=== PATIENT | female | born 1995 | race Hispanic/Latino ===

== ENCOUNTER 2023-08-16 12:06 | Emergency (ER) | payer SELFPAY ==
--- NOTE | ~2023-08-16 | US_ITS ---
EXAMINATION: US OB <=14 wk fetus w TV INDICATION: miscarriage TECHNIQUE: Sonography of the pelvis was performed by transabdominal and transvaginal techniques. COMPARISON: None. RESULT: Uterus: 8.8 x 4.9 x 6.2 cm. Anteverted. Homogenous myometrium. Endometrial thickened to 2.5 cm by pa rtially vascular heterogeneously echogenic material. Intrauterine gestational sac: Not seen. Right ovary: 2.0 x 1.2 x 1.9 cm. Vascular flow is present. No adnexal mass. Left ovary: 2.3 x 2.8 x 3.3 cm. Vascular flow is present. 1.9 cm simple cyst. Pelvis free fluid: None. IMPRESSION: A discrete gestational sac is not identified. No sonographic evidence of ectopic . Endometrial thickening, with endometrial cavity contents that likely represent a combination of hemor rhage and products of conception, consistent with loss, in progress. Reviewed, dictated and finalized at location [facility]. IMPRESSION: A discrete gestational sac is not identified. No sonographic evidence of ectopic . Endometrial thickening, with endometrial cavity contents that likely represent a combination of hemorrhage and products of conception, consistent with pregnan cy loss, in progress.
[2023-08-16 12:12] VITALS: BP 116/71; PULSE 82; RESP 18; TEMP 36.6; O2SAT 99
--- NOTE | 2023-08-16 14:24 | ED.FEMALEGU ---
HPI - Female Genitourinary General Chief complaint: Vaginal Bleeding Stated complaint: ABD pain/ spotting Time Seen by Provider: 08/16/23 14:24 Focused HPI:Zoe is a 28-year-old female patient presenting to the emergency room today with complaints of abdominal pain and vaginal spotting. She reports that she has taken at home test and was positive, but has not seen OB. Last menstrual period was in June 27. Reports she is having pain to the left hip and over her uterus. Symptoms started this morning and are gradually getting worse. Denies any urinary symptoms. Pain is 8/10 currently. General: Well-developed, well nourished, in no apparent distress. Head: Normocephalic, atraumatic. Cardio: Regular rate and rhythm, s1 and s2 normal, no murmur appreciated. Resp: Clear to auscultation bilaterally, no rhonchi, rales, wheezing or rubs. Abdomen: Soft, pliable, bowel sounds present in all quadrants, tender to palpation over the lower abdomen and suprapubic area, no organomegly, no CVAT tenderness. Patient screened in triage and initial orders placed. Additional care and disposition to be based upon diagnostic testing and treatment. Source: patient Mode of arrival: ambulatory Limitations: no limitations Related Data Allergies Allergy/AdvReac Type Severity Reaction Status Date / Time No Known Allergies Allergy Verified 08/16/23 12:08 PMFSH Comments At the time of my signature, I reviewed and agree with the nursing past medical, surgical, social, and family history. There is no relevant family history pertinent to the patient complaint. Course Course Emergency Course: Portions of this record may have been created with voice recognition software. Vital Signs Vital signs: Vital Signs Temperature 36.6 C 08/16/23 12:12 Pulse Rate 82 08/16/23 12:12 Respiratory Rate 18 08/16/23 12:12 Blood Pressure 116/71 08/16/23 12:12 Pulse Oximetry 99 08/16/23 12:12 Temperature 36.6 C 08/16/23 12:12 Pulse Rate 71 08/16/23 14:51 Respiratory Rate 14 08/16/23 14:51 Blood Pressure 113/73 08/16/23 14:51 Pulse Oximetry 100 08/16/23 14:51 Vital signs reviewed MDM - Female Genitourinary Lab Data 08/16/23 14:46 08/16/23 14:46 Labs: Lab Results 08/16/23 Range/Units 14:46 WBC 11.0 H (4.5-10.0) K/mm3 RBC 4.21 (4.2-5.4) M/mm3 Hgb 12.6 (12.0-15.0) g/dL Hct 38.1 (37.0-47.0) % MCV 90.5 (80-100) fl MCH 29.9 (26-34) pg MCHC 33.1 (32-36) g/dl RDW 13.3 (11.5-14.5) % Plt Count 351 (150-375) k/mm3 MPV 10.0 (7.4-10.4) fl Immature Gran % (Auto) 0.4 (0-0.5) % Neut % (Auto) 49.8 (45.5-73.1) % Lymph % (Auto) 42.1 (18.3-44.2) % Sawyer % (Auto) 6.3 (2.6-8.5) % Eos % (Auto) 1.0 (0-4.4) % Baso % (Auto) 0.4 (0.2-1.2) % Lymph # (Auto) 4.63 H (0.9-3.2) K/mm3 Sawyer # (Auto) 0.7 H (0.1-0.6) K/mm3 Eos # (Auto) 0.1 (0-0.3) K/mm3 Baso # (Auto) 0.0 (0.0-0.1) K/mm3 Abs Immat Gran (auto) 0.04 H (0.00-0.031) K/mm3 Absolute Neuts (auto) 5.5 (1.3-6.7) K/mm3 Absolute Nucleated RBC 0.000 (0.0-0.012) K/mm3 Nucleated RBC % 0.0 (0.0-0.2) % PT 12.9 (11.1-14.7) Seconds INR 0.9 APTT 27.2 (22.3-36.8) Seconds Sodium 137 (137-145) mmol/L Potassium 4.3 (3.4-5.0) mmol/L Chloride 105 (98-107) mmol/L Carbon Dioxide 24 (22-30) mmol/L Anion Gap 8 (4-12) mmol/L BUN 7 (7-17) mg/dL Creatinine 0.50 L (0.7-1.0) mg/dL Estim Creat Clear Calc Not Reportable Estimated GFR > 60 (59 - ) Glucose 96 (65-110) mg/dL Calcium 9.0 (8.4-10.2) mg/dL Total Bilirubin 0.3 (0.2-1.3) mg/dL AST 23 (14-36) U/L ALT 30 (6-35) U/L Alkaline Phosphatase 44 (38-126) U/L Total Protein 8.0 (6.3-8.2) g/dL Albumin 4.6 (3.5-5.1) g/dL Beta HCG, Quant 51095.00 mIU/ML Urine Color Yellow (Yellow) Urine Appearance Clear (Clear) Urine pH 6.5 (5.0-9.0) Ur Specific [place] 1.009 (1.001-1.035)
[2023-08-16 14:51] VITALS: BP 113/73; PULSE 71; RESP 14; O2SAT 100
[2023-08-16 14:57] LABS: Basophils Percent Auto 0.4 % (0.2-1.2); Eosinophils Absolute Auto 0.1 K/mm3 (0-0.3); Hematocrit 38.1 % (37.0-47.0); Hemoglobin 12.6 g/dL (12.0-15.0); Immature Granulocyte Absolute 0.04 K/mm3 (0.00-0.031); Immature Granulocyte Percent A 0.4 % (0-0.5); Lymphocytes Absolute Auto 4.63 K/mm3 (0.9-3.2); Lymphocytes Percent Auto 42.1 % (18.3-44.2); Mean Corpuscular HGB Conc 33.1 g/dl (32-36); Mean Corpuscular Hemoglobin 29.9 pg (26-34); Mean Corpuscular Volume 90.5 fl (80-100); Monocytes Absolute Auto 0.7 K/mm3 (0.1-0.6); Monocytes Percent Auto 6.3 % (2.6-8.5); Neutrophils Absolute Auto 5.5 K/mm3 (1.3-6.7); Neutrophils Percent Auto 49.8 % (45.5-73.1); Platelet Count Result 351 k/mm3 (150-375); Red Blood Count 4.21 M/mm3 (4.2-5.4); Red Cell Distribution Width 13.3 % (11.5-14.5)
[2023-08-16 15:00] LABS: Appearance Urine Clear (Clear); Bacteria Urine None Seen /hpf; Bilirubin Urine Negative (Negative); Blood Urine Trace (Negative); Color Urine Yellow (Yellow); Glucose Urine UA Negative (Negative); Ketones Urine Negative (Negative); Leukocyte Esterase Ur Negative LEU/UL (Negative); Nitrate Urine Negative (Negative); Non Pathogenic Casts 0-2; Protein Urine Negative (Negative); RBC Urine 0-2 /hpf (0-2); Specific Grav Ur 1.009 (1.001-1.035); Squamous Epithelial Cell Urine None Seen /hpf (Few); Urobilinogen Urine 0.2 mg/dL (<2.0); WBC Urine 0-5 /hpf (0-3); pH Urine 6.5 (5.0-9.0)
[2023-08-16 15:03] LABS: Add Urine Microscopic? YES
[2023-08-16 15:04] LABS: Alanine Aminotransferase 30 U/L (6-35); Albumin Level 4.6 g/dL (3.5-5.1); Alkaline Phosphatase 44 U/L (38-126); Anion Gap 8 mmol/L (4-12); Aspartate Amino Transferase 23 U/L (14-36); Bilirubin,Total 0.3 mg/dL (0.2-1.3); Blood Urea Nitrogen 7 mg/dL (7-17); Carbon Dioxide 24 mmol/L (22-30); Chloride 105 mmol/L (98-107); Estimated Glomerular Filt Rate > 60; Glucose 96 mg/dL (65-110); INR 0.9; Partial Thromboplastin Time 27.2 Seconds (22.3-36.8); Potassium 4.3 mmol/L (3.4-5.0); Prothrombin Time 12.9 Seconds (11.1-14.7); Sodium 137 mmol/L (137-145)
--- NOTE | 2023-08-16 15:31 | ED.FEMALEGU ---
HPI - Female Genitourinary General Chief complaint: Vaginal Bleeding Stated complaint: ABD pain/ spotting Time Seen by Provider: 08/16/23 14:24 Source: patient Mode of arrival: ambulatory Limitations: no limitations History of Present Illness HPI Narrative: PATIENT CAME TO THE EMERGENCY ROOM BY PRIVATE CAR, 28 YEARS OLD FEMALE DOES NOT SPEAK JAPANESE COMPLAINING OF LOWER ABDOMINAL PAIN AND VAGINAL SPOTTING FOR THE LAST 15 DAYS ROXANNA SAINI PATIENT IS 4 PARA 2 HOURS. PATIENT HAD POSITIVE TEST AT HOME, LAST MENSTRUAL PERIOD WAS JUNE 27 2023. CURRENTLY PATIENT DOES NOT HAVE AN OBGYN FOR FOLLOW-UP. SHE DENIES ANY FEVER, CHILLS, NAUSEA, VOMITING, LIGHTHEADEDNESS OR DIZZINESS. Related Data Allergies Allergy/AdvReac Type Severity Reaction Status Date / Time No Known Allergies Allergy Verified 08/16/23 12:08 Review of Systems Review of Systems: All systems reviewed & are unremarkable except as noted in HPI and below Exam Narrative: GENERAL APPEARANCE: WELL-DEVELOPED, WELL-NOURISHED SKIN: NORMAL COLOR CHEST AND RESPIRATORY: AIRWAY PATENT, NO RESPIRATORY DISTRESS, NO ACCESSORY MUSCLE USE HEART: REGULAR RATE/RHYTHM ABDOMEN: SOFT, MILD SUPRAPUBIC TENDERNESS, NO GUARDING REBOUND, NO ORGANOMEGALY, QUIET BOWEL SOUNDS MUSCULOSKELETAL: NORMAL RANGE OF MOTION, NONTENDER BACK NEUROLOGIC: ALERT AND ORIENTED ?3, HARBOR TUG CAPTAIN IS NORMAL TESTED, NO GROSS MOTOR DEFICIT Course Consultations Consultation #1: LYLE ALEJO PATIENT NEED TO COME BACK TO HIS OFFICE TOMORROW FOR D AND C Date: 08/16/23 Time: 17:53 Vital Signs Vital signs: Vital Signs Temperature 36.6 C 08/16/23 12:12 Pulse Rate 82 08/16/23 12:12 Respiratory Rate 18 08/16/23 12:12 Blood Pressure 116/71 08/16/23 12:12 Pulse Oximetry 99 08/16/23 12:12 Temperature 36.6 C 08/16/23 12:12 Pulse Rate 71 08/16/23 14:51 Respiratory Rate 14 08/16/23 14:51 Blood Pressure 113/73 08/16/23 14:51 Pulse Oximetry 100 08/16/23 14:51 MDM - Female Genitourinary MDM Narrative Medical decision making narrative: PATIENT PRESENTS WITH VAGINAL SPOTTING FOR THE LAST 15 DAYS, UNKNOWN DURATION OF . LAST MENSTRUAL PERIOD JUNE 27, 2023 PATIENT DECLINED PELVIC EXAMINATION. DIFFERENTIAL DIAGNOSIS THREATENED , COMPLETE, INCOMPLETE , ECTOPIC BLOOD WORKUP AND URINALYSIS TODAY SHOWED NO SIGNIFICANT ABNORMALITIES. PELVIC ULTRASOUND SHOWED FINDING CONSISTENT WITH INCOMPLETE , AND NO EVIDENCE OF ECTOPIC , POSITIVE PRODUCTS OF CONCEPTION CONSISTENT WITH LOSS, IN PROGRESS PATIENT IS SCHEDULED FOR D&C TOMORROW DISCUSSED WITH DR. LYLE HALLMAN LATER DR. BASSETT CANCELED THE APPOINTMENT BECAUSE HE DOES NOT TAKE HER INSURANCE. I WAS ABLE TO SPEAK TO DR. SMITH AT THE OBG[facility] WHO DOES NOT TAKE THE PATIENT'S INSURANCE, RECOMMENDED THE PATIENT CAN FOLLOW-UP WITH [facility]. Differential Diagnosis Differential diagnosis: Likely other ( ABOVE) Lab Data 08/16/23 14:46 08/16/23 14:46 Labs: Lab Results 08/16/23 Range/Units 14:46 WBC 11.0 H (4.5-10.0) K/mm3 RBC 4.21 (4.2-5.4) M/mm3 Hgb 12.6 (12.0-15.0) g/dL Hct 38.1 (37.0-47.0) % MCV 90.5 (80-100) fl MCH 29.9 (26-34) pg MCHC 33.1 (32-36) g/dl RDW 13.3 (11.5-14.5) % Plt Count 351 (150-375) k/mm3 MPV 10.0 (7.4-10.4) fl Immature Gran % (Auto) 0.4 (0-0.5) % Neut % (Auto) 49.8 (45.5-73.1) % Lymph % (Auto) 42.1 (18.3-44.2) % Owen % (Auto) 6.3 (2.6-8.5) % Eos % (Auto) 1.0 (0-4.4) % Baso % (Auto) 0.4 (0.2-1.2) % Lymph # (Auto) 4.63 H (0
[2023-08-16] MEDS: SODIUM CHLORIDE 0.9% IV 1,000 ML 999 ML IV CONT (16:50)
== END 2023-08-16 19:14 | disposition home or self-care (01) ==
PROVIDERS: Nurse Practitioner Family; Emergency Provider Emergency Medicine
DX: O03.4 Incomplete spontaneous abortion without complication (principal)
CPT/HCPCS: 36415; 76801; 76817; 80053; 81001; 81025; 84702; 85025; 85461; 85610; 85730; 86850; 86900; 86901; 96360; 99284; J7030

== ENCOUNTER 2024-03-22 13:17 | Emergency (ER) | payer OTHER, SELFPAY ==
--- NOTE | ~2024-03-22 | US_ITS ---
EXAMINATION: US OB <= 14 weeks fetus DATE: 03/22/2024 16:34 INDICATION: . Pelvic pain. TECHNIQUE: Real-time transabdominal pelvic ultrasound was performed. COMPARISON: Ultrasound 08/16/2023 FINDINGS: The uterus measures 9.7 x 9.3 x 10.3 cm. There is an intrauterine gestational sac with mean diameter of 6.2 cm. The crown rump length measures 8.1 cm. The femur length is 1.4 cm. These findings co rrelate with an estimated gestational age of 14 weeks and 1 day(s) (+/-) 1 week(s) and 0 day(s). Feta l heart motion is identified measuring 150 beats per minute (bpm) by M-mode Doppler. The right ovary measures 1.7 x 2.6 x 2.2 cm. The left ovary measures 2.1 x 1.7 x 1.7 cm. There is no free fluid in th e pelvis. IMPRESSION: 1. Single living intrauterine gestation with estimated date of delivery of 09/19/2024. Reviewed, dictated and finalized at location A. L POURER IMPRESSION: 1. Single living intrauterine gestation with estimated date of delivery of 09/07.
[2024-03-22 13:18] VITALS: BP 107/63; PULSE 65; RESP 18; TEMP 36.5; O2SAT 100
--- NOTE | 2024-03-22 13:42 | ED_ITS ---
HPI - General Chief complaint: Vaginal Bleeding <Precious Reddy PA-C - Last Filed: 03/24/24 09:45> Stated complaint: 14 weeks, cramping and bleeding <Precious Reddy PA-C - Last Filed: 03/24/24 09:45> Time Seen by Provider: 03/22/24 13:42 <Precious Reddy PA-C - Last Filed: 03/24/24 09:45> Focused HPI: This is a 28 year old female that presents to the ER for vaginal bleeding. Reports she is about 9 weeks by LMP. This started this morning. She has had an US which showed an intrauterine . She does not know her OB's name. Reports dysuria. Denies fevers, vomiting. GENERAL: Well-appearing, well-nourished, and in no acute distress. HEAD: Normocephalic, atraumatic. CHEST: Clear to auscultation. ?No respiratory distress. HEART: Regular rate and rhythm.? NEURO: ?Alert and oriented x3. Patient screened in triage and initial orders placed.? ?Additional care and disposition to be based upon?diagnostic testing and treatment. <Precious Reddy PA-C - Last Filed: 03/24/24 09:45> History of Present Illness HPI Narrative: 28-year-old female presenting with vaginal bleeding. Patient is Cambodian speaking, history and exam performed using formal equipment installation professional. She states that she recently saw an OBGYN who confirmed her and told her she was about 3 months along. States that she was started on antibiotics for a UTI as well as prenatals at that time. For the last several days she has had some pelvic pain and she noticed some drops of blood when she urinated this morning so she came in for evaluation. States that the bleeding has resolved. Continues to have lower pelvic pain. <Sona Almanza MD - Last Filed: 03/22/24 20:29> Related Data Allergies/Adverse reactions: Allergies Allergy/AdvReac Type Severity Reaction Status Date / Time No Known Allergies Allergy Verified 08/16/23 12:08 <Precious Reddy PA-C - Last Filed: 03/24/24 09:45> Review of Systems Review of Systems: All systems reviewed & are unremarkable except as noted in HPI and below <Sona Almanza MD - Last Filed: 03/22/24 20:29> [facility] Past Medical History Medical History: Medical History (Updated 03/24/24 @ 09:45 by Precious Reddy PA-C) No active medical problems <Precious Reddy PA-C - Last Filed: 03/24/24 09:45> Social History Social History: Social History (Updated 03/24/24 @ 09:44 by Precious Reddy PA-C) Substance use: never <Precious Reddy PA-C - Last Filed: 03/24/24 09:45> Exam Narrative: GENERAL: Nontoxic, no acute distress, pleasant cooperative HEAD: Normocephalic, atraumatic. EYES: PERRLA and EOMI. ENT: grossly unremarkable NECK: Supple. CHEST: No respiratory distress. HEART: Regular rate and rhythm ABDOMEN: Soft, mild suprapubic tenderness w/o guarding or rebound EXTREMITIES: Normal range of motion. SKIN: Warm, dry, no rash. NEURO: Alert and oriented x3. PSYCH: Normal mood and affect. <Precious Reddy PA-C - Last Filed: 03/24/24 09:45> GENERAL: Nontoxic, no acute distress, pleasant cooperative HEAD: Normocephalic, atraumatic. EYES: PERRLA and EOMI. ENT: grossly unremarkable NECK: Supple. CHEST: No respiratory distress. HEART: Regular rate and rhythm ABDOMEN: Soft, mild suprapubic tenderness w/o guarding or rebound EXTREMITIES: Normal range of motion. SKIN: Warm, dry, no rash. NEURO: Alert and oriented x3. PSYCH: Normal mood and affect. <Sona Almanza MD - Last Filed: 03/22/24 20:29> Course Vital Signs Vital signs: Vital Signs Temperature 97.7 F 03/22/24 13:18 Pulse Rate 65 03/22/24 13:18 Respiratory Rate 18 03/22/24 13:18 Blood Pressure 107/63 03/22/24 13:18 Pulse Oximetry 100 03/22/24 13:18 Oxygen Delivery Room Air 03/22/24 13:18 Temperature 98.6 F 03/22/24 18:28 Pulse Rate 65 03/22/24 19:27 Respiratory Rate 14 03/22/24 19:27 Blood Pressure 109/70 03/22/24 19:27 Pulse Oximetry 100 03/22/24 19:27 Oxygen Delivery Room Air 03/22/24 13:18 <Precious Reddy PA-C - Last Filed: 03/24/24 09:45> Vital Signs Temperature 97.7 F 03/22/24 13:18 Pulse Rate 65 03/22/24 13:18 Respiratory Rate 18 03/22/24 13:18 Blood Pressure 107/63 03/22/24 13:18 Pulse Oximetry 100 03/22/24 13:18 Oxygen Delivery Room Air 03/22/24 13:18 Temperature 98.6 F 03/22/24 18:28 Pulse Rate 65 03/22/24 19:27 Respiratory Rate 14 03/22/24 19:27 Blood Pressure 109/70 03/22/24 19:27 Pulse Oximetry 100 03/22/24 19:27 Oxygen Delivery Room Air 03/22/24 13:18 <Sona Almanza MD - Last Filed: 03/22/24 20:29> MDM - OB/Uterine Contractions MDM Narrative Medical decision making narrative: 28-year-old female presenting with pelvic pain and vaginal bleeding. Vitals are stable. Exam remarkable for the above. Blood work without significant abnormalities. UA is not infected. Ultrasound shows intrauterine fetus with heart rate around 150. Discussed the reassuring workup with the patient and advise she use Tylenol for pain control and follow-up closely with her OBGYN. Appropriate return precautions given. Discharged in stable condition. <Sona Almanza MD - Last Filed: 03/22/24 20:29> Differential Diagnosis Differential diagnosis: Likely other ( Vaginal bleeding in early , spontaneous , pelvic pain) <Sona Almanza MD - Last Filed: 03/22/24 20:29> Medical Records Attestation: I reviewed the patient's medical records. <Sona Almanza MD - Last Filed: 03/22/24 20:29> Lab Data Attestation: I reviewed the patient's lab results. <Sona Almanza MD - Last Filed: 03/22/24 20:29> Result diagrams: 03/22/24 14:11 03/22/24 14:11 <Precious Reddy PA-C - Last Filed: 03/24/24 09:45> Labs: Lab Results 03/22/24 03/22/24 Range/Units 14:11 14:34 WBC 9.7 (4.5-10.0) K/mm3 RBC 3.91 L (4.2-5.4) M/mm3 Hgb 11.8 L (12.0-15.0) g/dL Hct 35.9 L (37.0-47.0) % MCV 91.8 (80-100) fl MCH 30.2 (26-34) pg MCHC 32.9 (32-36) g/dl RDW 14.2 (11.5-14.5) % Plt Count 334 (150-375) k/mm3 MPV 10.1 (7.4-10.4) fl Immature Gran % (Auto) 0.7 H (0-0.5) % Neut % (Auto) 54.7 (45.5-73.1) % Lymph % (Auto) 37.4 (18.3-44.2) % Elk % (Auto) 5.6 (2.6-8.5) % Eos % (Auto) 1.2 (0-4.4) % Baso % (Auto) 0.4 (0.2-1.2) % Lymph # (Auto) 3.61 H (0.9-3.2) K/mm3 Elk # (Auto) 0.5 (0.1-0.6) K/mm3 Eos # (Auto) 0.1 (0-0.3) K/mm3 Baso # (Auto) 0.0 (0.0-0.1) K/mm3 Abs Immat Gran (auto) 0.07 H (0.00-0.031) K/mm3 Absolute Neuts (auto) 5.3 (1.3-6.7) K/mm3 Absolute Nucleated RBC 0.000 (0.0-0.012) K/mm3 Nucleated RBC % 0.0 (0.0-0.2) % PT 13.1 (11.1-14.7) Seconds INR 1.0 APTT 24.8 (22.3-36.8) Seconds Sodium 136 L (137-145) mmol/L Potassium 4.1 (3.4-5.0) mmol/L Chloride 106 (98-107) mmol/L Carbon Dioxide 23 (22-30) mmol/L Anion Gap 7 (4-12) mmol/L BUN 4 L (7-17) mg/dL Creatinine 0.50 L (0.7-1.0) mg/dL Estim Creat Clear Calc 118 ml/min Estimated GFR > 60 (59 - ) Glucose 93 (65-110) mg/dL Calcium 9.1 (8.4-10.2) mg/dL Total Bilirubin 0.5 (0.2-1.3) mg/dL AST 22 (14-36) U/L ALT 16 (6-35) U/L Alkaline Phosphatase 35 L (38-126) U/L Total Protein 8.0 (6.3-8.2) g/dL Albumin 4.0 (3.5-5.1) g/dL Beta HCG, Quant 54991.00 mIU/ML Urine Color Yellow (Yellow) Urine Appearance Clear (Clear) Urine pH 8.5 (5.0-9.0) Ur Specific [place] 1.006 (1.001-1.035) Urine Protein Negative (Negative) mg/dL Urine Glucose (UA) Negative (Negative) mg/dL Urine Ketones Negative (Negative) mg/dL Ur Blood (Man) Negative (Negative) Urine Nitrate Negative (Negative) Urine Bilirubin Negative (Negative) Urine Urobilinogen 0.2 (<2.0) mg/dL Leukocyte Esterase Rfl Negative (Negative) MEGA/UL Blood Type A Positive Antibody Screen Negative Screen Not Reportable Baby's Blood Type Not Reportable Baby's FANTA Not Reportable Doses of RhIg Required 0 <Precious Reddy PA-C - Last Filed: 03/24/24 09:45> Lab Results 03/22/24 03/22/24 Range/Units 14:11 14:34 WBC 9.7 (4.5-10.0) K/mm3 RBC 3.91 L (4.2-5.4) M/mm3 Hgb 11.8 L (12.0-15.0) g/dL Hct 35.9 L (37.0-47.0) % MCV 91.8 (80-100) fl MCH 30.2 (26-34) pg MCHC 32.9 (32-36) g/dl RDW 14.2 (11.5-14.5) % Plt Count 334 (150-375) k/mm3 MPV 10.1 (7.4-10.4) fl Immature Gran % (Auto) 0.7 H (0-0.5) % Neut % (Auto) 54.7 (45.5-73.1) % Lymph % (Auto) 37.4 (18.3-44.2) % Elk % (Auto) 5.6 (2.6-8.5) % Eos % (Auto) 1.2 (0-4.4) % Baso % (Auto) 0.4 (0.2-1.2) % Lymph # (Auto) 3.61 H (0.9-3.2) K/mm3 Elk # (Auto) 0.5 (0.1-0.6) K/mm3 Eos # (Auto) 0.1 (0-0.3) K/mm3 Baso # (Auto) 0.0 (0.0-0.1) K/mm3 Abs Immat Gran (auto) 0.07 H (0.00-0.031) K/mm3 Absolute Neuts (auto) 5.3 (1.3-6.7) K/mm3 Absolute Nucleated RBC 0.000 (0.0-0.012) K/mm3 Nucleated RBC % 0.0 (0.0-0.2) % PT 13.1 (11.1-14.7) Seconds INR 1.0 APTT 24.8 (22.3-36.8) Seconds Sodium 136 L (137-145) mmol/L Potassium 4.1 (3.4-5.0) mmol/L Chloride 106 (98-107) mmol/L Carbon Dioxide 23 (22-30) mmol/L Anion Gap 7 (4-12) mmol/L BUN 4 L (7-17) mg/dL Creatinine 0.50 L (0.7-1.0) mg/dL Estim Creat Clear Calc 118 ml/min Estimated GFR > 60 (59 - ) Glucose 93 (65-110) mg/dL Calcium 9.1 (8.4-10.2) mg/dL Total Bilirubin 0.5 (0.2-1.3) mg/dL AST 22 (14-36) U/L ALT 16 (6-35) U/L Alkaline Phosphatase 35 L (38-126) U/L Total Protein 8.0 (6.3-8.2) g/dL Albumin 4.0 (3.5-5.1) g/dL Beta HCG, Quant 97160.00 mIU/ML Urine Color Yellow (Yellow) Urine Appearance Clear (Clear) Urine pH 8.5 (5.0-9.0) Ur Specific [place] 1.006 (1.001-1.035) Urine Protein Negative (Negative) mg/dL Urine Glucose (UA) Negative (Negative) mg/dL Urine Ketones Negative (Negative) mg/dL Ur Blood (Man) Negative (Negative) Urine Nitrate Negative (Negative) Urine Bilirubin Negative (Negative) Urine Urobilinogen 0.2 (<2.0) mg/dL Leukocyte Esterase Rfl Negative (Negative) MEGA/UL Blood Type A Positive Antibody Screen Negative Screen Not Reportable Baby's Blood Type Not Reportable Baby's FANTA Not Reportable Doses of RhIg Required 0 <Sona Almanza MD - Last Filed: 03/22/24 20:29> Imaging Data Radiologist's impression: ITS Impressions Ultrasound 03/22/24 16:40 IMPRESSION: 1. Single living intrauterine gestation with estimated date of delivery of 09/19/2024. <Sona Almanza MD - Last Filed: 03/22/24 20:29> Critical Care Time Critical Care Time Critical Care Time: No <Sona Almanza MD - Last Filed: 03/22/24 20:29> Discharge Plan Discharge Clinical Impression: Vaginal bleeding affecting early , Pelvic pain affecting <Precious Reddy PA-C - Last Filed: 03/24/24 09:45> Patient Disposition: Home, Self-Care <Precious Reddy PA-C - Last Filed: 03/24/24 09:45> Condition: Stable <Precious Reddy PA-C - Last Filed: 03/24/24 09:45> Instructions: Antibiotic Form, Threatened Miscarriage (ED), Abdominal Pain in (ED) <Precious Reddy PA-C - Last Filed: 03/24/24 09:45> Additional Instructions: Hodges an?lisis de sal de hoy no muestra anomal?as agudas. La ecograf?a muestra un feto dentro del ?tero con latidos card?acos normales. Mckenzie un seguimiento estrecho con hodges obstetra. Utilice Tylenol seg?n sea necesario para el dolor. Si vida s?ntomas empeoran o surgen otros s?ntomas preocupantes, regrese a la karen de emergencias. <Precious Reddy PA-C - Last Filed: 03/24/24 09:45> Follow-up/Referrals: UNKNOWN,DOCTOR [Primary Care Provider] - <Precious Reddy PA-C - Last Filed: 03/24/24 09:45>
[2024-03-22 14:22] LABS: Basophils Percent Auto 0.4 % (0.2-1.2); Eosinophils Absolute Auto 0.1 K/mm3 (0-0.3); Eosinophils Percent Auto 1.2 % (0-4.4); Hematocrit 35.9 % (37.0-47.0); Hemoglobin 11.8 g/dL (12.0-15.0); Immature Granulocyte Absolute 0.07 K/mm3 (0.00-0.031); Immature Granulocyte Percent A 0.7 % (0-0.5); Lymphocytes Absolute Auto 3.61 K/mm3 (0.9-3.2); Lymphocytes Percent Auto 37.4 % (18.3-44.2); Mean Corpuscular HGB Conc 32.9 g/dl (32-36); Mean Corpuscular Hemoglobin 30.2 pg (26-34); Mean Corpuscular Volume 91.8 fl (80-100); Mean Platelet Volume 10.1 fl (7.4-10.4); Monocytes Absolute Auto 0.5 K/mm3 (0.1-0.6); Monocytes Percent Auto 5.6 % (2.6-8.5); Neutrophils Absolute Auto 5.3 K/mm3 (1.3-6.7); Neutrophils Percent Auto 54.7 % (45.5-73.1); Platelet Count Result 334 k/mm3 (150-375); Red Blood Count 3.91 M/mm3 (4.2-5.4); Red Cell Distribution Width 14.2 % (11.5-14.5); White Blood Count 9.7 K/mm3 (4.5-10.0)
[2024-03-22 14:34] LABS: Alanine Aminotransferase 16 U/L (6-35); Alkaline Phosphatase 35 U/L (38-126); Anion Gap 7 mmol/L (4-12); Aspartate Amino Transferase 22 U/L (14-36); Bilirubin,Total 0.5 mg/dL (0.2-1.3); Blood Urea Nitrogen 4 mg/dL (7-17); Calcium 9.1 mg/dL (8.4-10.2); Carbon Dioxide 23 mmol/L (22-30); Chloride 106 mmol/L (98-107); Estimated CRCL calculation 118 ml/min; Estimated Glomerular Filt Rate > 60; Glucose 93 mg/dL (65-110); Potassium 4.1 mmol/L (3.4-5.0); Sodium 136 mmol/L (137-145)
[2024-03-22 14:36] LABS: Prothrombin Time 13.1 Seconds (11.1-14.7)
[2024-03-22 14:37] LABS: Partial Thromboplastin Time 24.8 Seconds (22.3-36.8)
[2024-03-22 14:47] LABS: Add Urine Microscopic? NO; Appearance Urine Clear (Clear); Bilirubin Urine Negative (Negative); Blood Urine Negative (Negative); Color Urine Yellow (Yellow); Glucose Urine UA Negative (Negative); Ketones Urine Negative (Negative); Leukocyte Esterase Ur Negative LEU/UL (Negative); Nitrate Urine Negative (Negative); Protein Urine Negative (Negative); Specific Grav Ur 1.006 (1.001-1.035); Urobilinogen Urine 0.2 mg/dL (<2.0); pH Urine 8.5 (5.0-9.0)
[2024-03-22 18:28] VITALS: BP 105/72; PULSE 61; RESP 18; TEMP 37; O2SAT 100
[2024-03-22 19:27] VITALS: BP 109/70; PULSE 65; RESP 14; O2SAT 100
== END 2024-03-22 20:44 | disposition home or self-care (01) ==
PROVIDERS: Physician Assistant; Emergency Provider Emergency Medicine
DX: O20.9 Hemorrhage in early pregnancy, unspecified (principal); O26.891 Other specified pregnancy related conditions, first trimester; R10.2 Pelvic and perineal pain; Z3A.09 9 weeks gestation of pregnancy
CPT/HCPCS: 36415; 76801; 80053; 81003; 84702; 85025; 85461; 85610; 85730; 86850; 86900; 86901; 99284